=== PATIENT | male | born 1955 | race African-American/Black ===

== ENCOUNTER 2017-10-09 10:57 | Emergency (ER) | payer OTHER ==
[~2017-10-09] VITALS: Ht 172.7 cm; Wt 88.6 kg
[2017-10-09] MEDS ORDERED: LISI-660 PO (11:10)
[2017-10-09] MEDS ORDERED: GABA-531 PO (11:10)
[2017-10-09] MEDS ORDERED: SIMV-259 PO (11:10)
[2017-10-09] MEDS ORDERED: OLAN5TAB2 PO (11:10)
[2017-10-09 12:16] LABS: BASOPHILS % (AUTO) 0.3 % (0.0-2.0); EOSINOPHILS % (AUTO) 0.9 % (1.0-6.0); HEMATOCRIT 41.5 % (41-53); HEMOGLOBIN 14.2 g/dL (13.5-17.5); LYMPHOCYTES # (AUTO) 1.6 K/uL (1.0-4.8); MEAN CORPUSCULAR HEMOGLOBIN 28.5 pg (26.0-34.0); MEAN CORPUSCULAR HGB CONC 34.1 G/dL (31.0-37.0); MEAN CORPUSCULAR VOLUME 84 fL (80-100); MONOCYTES # (AUTO) 0.6 K/uL (0.1-1.0); MONOCYTES % (AUTO) 5.7 % (2.0-9.0); NEUTROPHILS # (AUTO) 7.6 K/uL (1.8-7.7); NEUTROPHILS % (AUTO) 77.1 % (40.0-70.0); PLATELET COUNT (AUTO) 410 K/uL (150-450); RED BLOOD CELL COUNT(AUTO) 4.97 MIL/uL (4.50-5.90); RED CELL DISTRIBUTION WIDTH 13.3 % (11.5-14.5)
[2017-10-09 12:30] LABS: ANION GAP 7 mmol/L (8-16); CALCIUM, TOTAL 8.5 mg/dL (8.8-10.5); CARBON DIOXIDE 30 mmol/L (22-29); CHLORIDE 107 mmol/L (98-107); GLOMERULAR FILTR. RATE CALC > 60 mL/min (>60); GLUCOSE,RANDOM 96 mg/dL (70-110); POTASSIUM 3.6 mmol/L (3.5-5.1); SODIUM SERUM 144 mmol/L (136-145); UREA NITROGEN, BLOOD 9 mg/dL (7-18)
[2017-10-09 12:34] LABS: ALANINE AMINOTRANSFERASE 22 U/L (12-78); ALBUMIN 3.8 g/dL (3.4-5.0); ALKALINE PHOSPHATASE 74 U/L (46-116); ASPARTATE AMINOTRANSFERASE 21 U/L (15-37); BILIRUBIN,TOTAL 0.3 mg/dL (0.1-1.0); TOTAL PROTEIN, SERUM 7.4 g/dL (6.4-8.2)
[2017-10-09 12:43] LABS: B-TYPE NATRIURETIC PEPTIDE 79 pg/mL (0-100)
[2017-10-09 13:33] VITALS: BP 125/71
== END 2017-10-09 13:35 | disposition home or self-care (01) ==
LOC: EMS 10:58
DX: R06.00 Dyspnea, unspecified (principal); I10 Essential (primary) hypertension
CPT/HCPCS: 93005; 99285

== ENCOUNTER 2019-04-25 12:40 | Emergency (ER) | payer OTHER ==
[~2019-04-25] VITALS: Ht 172.7 cm; Wt 90.5 kg
[~2019-04-25 12:40] MED LIST: GABA-531 PO; LISI-660 PO; OLAN5TAB2 PO; SIMV-259 PO
[2019-04-25] MEDS ORDERED: ACETAMINOPHEN 500 MG TABLET PO ONE (13:30)
[2019-04-25 15:00] VITALS: BP 133/78
== END 2019-04-25 15:06 | disposition home or self-care (01) ==
LOC: EMS 12:41
DX: S93.491A Sprain of other ligament of right ankle, initial encounter (principal); E78.00 Pure hypercholesterolemia, unspecified; I10 Essential (primary) hypertension; F20.9 Schizophrenia, unspecified; Z79.899 Other long term (current) drug therapy; W50.2XXA Accidental twist by another person, initial encounter; Y93.89 Activity, other specified; Y92.89 Other specified places as the place of occurrence of the external cause; Y99.8 Other external cause status